=== PATIENT | female | born 1945 | race Caucasian/White ===

== ENCOUNTER → 2021-05-13 | Outpatient (CLI) | payer SELFPAY | END | disposition home or self-care (01) | LOC: LAB SHORT 12:17 | DX: D23.39 Other benign neoplasm of skin of other parts of face (principal) | CPT/HCPCS: 88305 ==

== ENCOUNTER 2021-09-27 08:03 | Day surgery (SDC) | payer MEDICARE ==
[~2021-09-27] VITALS: Ht 167.6 cm; Wt 82.2 kg
[~2021-09-27 08:03] MED LIST: Acetaminophen325 M1 PO; Aspir 8181 MG PO; BACL10 PO; CLOP75 PO; DORZOPSO; ESCI10 PO; OMEP20ER PO; TRAZ50 PO; XALATAN2.5 ML BOTHEYES; ZOLP10 PO
[2021-09-27] MEDS ORDERED: ACET500 PO (08:43)
[2021-09-27] MEDS ORDERED: ALEN70 PO (08:53)
[2021-09-27] MEDS ORDERED: ALPR.25 PO (08:56)
--- NOTE | 2021-09-27 09:22 | NUR ---
09/27/21 0922 Nikki Mac 0.25ML OF EPI 1MG/ML ADDED TO 50ML OF BUPIVICAINE 0.5% TO CREATE A SOLUTION OF BUPIVICAINE 0.5% WITH EPI 1:200,000.
== END 2021-09-27 11:50 | disposition home or self-care (01) ==
LOC: ORSCSDS 08:03
PROVIDERS: Podiatrist Foot & Ankle Surgery
PROC: 0SGH04Z Fusion of Right Tarsal Joint with Internal Fixation Device, Open Approach (ICD-10-PCS; principal; 2021-09-27 09:15)
PROC: 0QSQ04Z Reposition Right Toe Phalanx with Internal Fixation Device, Open Approach (ICD-10-PCS; principal; 2021-09-27 09:15)
DX: M21.619 Bunion of unspecified foot (principal); M21.611 Bunion of right foot; I10 Essential (primary) hypertension; Z95.0 Presence of cardiac pacemaker; Z79.899 Other long term (current) drug therapy; Z79.82 Long term (current) use of aspirin; I48.91 Unspecified atrial fibrillation; Z79.02 Long term (current) use of antithrombotics/antiplatelets; G47.33 Obstructive sleep apnea (adult) (pediatric)
CPT/HCPCS: A9270; C1713; C1776; J0171; J0690; J1100; J2405; J2704; J3010; J7120

== ENCOUNTER 2023-02-13 16:01 | Emergency (ER) | payer MEDICARE ==
[~2023-02-13] VITALS: Ht 167.6 cm; Wt 81.2 kg
[~2023-02-13 16:01] MED LIST changes: +ACET500 PO; +ALEN70 PO; +ALPR.25 PO
[2023-02-13 16:03] VITALS: BP 140/71
== END 2023-02-13 18:17 | disposition home or self-care (01) ==
LOC: ER 16:01
DX: S61.411A Laceration without foreign body of right hand, initial encounter (principal); Z79.82 Long term (current) use of aspirin; Z79.899 Other long term (current) drug therapy; Z79.02 Long term (current) use of antithrombotics/antiplatelets; W26.8XXA Contact with other sharp object(s), not elsewhere classified, initial encounter
CPT/HCPCS: 12042; 99282-25; A9270

== ENCOUNTER 2025-01-10 06:05 | Day surgery (SDC) | payer OTHER ==
[2025-01-10] VITALS (7 sets, daily range): BP systolic 134–144; BP diastolic 65–83
[~2025-01-10] VITALS: Ht 167.6 cm; Wt 81.0 kg
[2025-01-10] MEDS ORDERED: TOPROL XL25 MG PO (06:27)
[2025-01-10] MEDS ORDERED: Amiodarone HCl200 MG PO (06:27)
[2025-01-10] MEDS ORDERED: NS 1,000 ML IV ONE (06:40)
--- NOTE | 2025-01-10 07:11 | NUR ---
ASSUMED CARE FROM ANESTHESIA. PT AWAKE AND VERBALIZING WELL. ATRIAL PACED 60 BPM POST CARDIOVERSION. DEVICE INTERIGATED POST CARDIOVERSION.
--- NOTE | 2025-01-10 07:57 | NUR ---
PT AND VERBALIZED UNDERSTANDING OF WRITTEN AND VERBAL D/C INST. IV REMOVED. ATRIAL PACE 60 BPM ON D/C. PT TAKEN OUT OF THE [facility]RT [facility]ENTER VIA W/C.
[2025-01-10] MEDS ORDERED: Propofol 10mg/ml 20 ml Vial (Procedural) IV ONE (08:18)
== END 2025-01-10 23:00 | disposition home or self-care (01) ==
LOC: ORSCMMR 06:05 → MHTC 06:05 → ORSCMMR 07:00 → ORD 07:00 → ORSCMMR 23:00 → MHTC 23:00
DX: I48.0 Paroxysmal atrial fibrillation (principal); I49.5 Sick sinus syndrome; I25.10 Atherosclerotic heart disease of native coronary artery without angina pectoris; I10 Essential (primary) hypertension; Z91.048 Other nonmedicinal substance allergy status; Z88.8 Allergy status to other drugs, medicaments and biological substances
CPT/HCPCS: 92960; 93280; J2704; J7030